=== PATIENT | female | born 1980 | race American Indian/Alaskan Native ===

== ENCOUNTER 2017-08-02 14:31 | Outpatient (CLI) | payer MEDICAID ==
[2017-08-02] MEDS ORDERED: LACTATED RINGERS 500 ML IV ONE (14:40)
[2017-08-02 15:22] LABS: Bacteria,Urine 1+ /HPF (Negative); Bilirubin,Urine NEG (Negative); Blood,Urine NEG (Negative); Ketones,Urine TR mg/dL (Negative); Leukocyte Esterase,Urine NEG (Negative); Mucus,Urine FEW /HPF; Nitrite,Urine NEG (Negative); Protein,Urine <15 mg/dL mg/dL (Negative); Urobilinogen,Urine < 2.0 mg/dL (<2.0)
--- NOTE | 2017-08-02 16:30 | Event Note ---
Date: 08/02/17 patient in triage with reports of having sharp pain around her lower abd followed by a wave of nausea and one episode of vomiting. She states after that , she noticed her underwear were wet. She states she had a panic attack but is feeling better now. no signs of ROM. Spec exam done - no pooling and nitrazine negative. white opaque discharge noted in a normal amount. Wet prep sent to lab. cervix appears long and closed. reassured patient, If normal EVELYN and Wet prep results, will d/c home to f/u in office. She is also requesting dental letter as she is having work done tomorrow (suspected cause of anxiety for patient.)
--- NOTE | 2017-08-02 18:21 | Ultrasound Report ---
FINAL REPORT EXAM: US OB LIMITED HISTORY: If FHR present, please do BPP, EVELYN TECHNIQUE: Biophysical profile obstetrical ultrasound PRIORS: None. FINDINGS: LMP 01/07/2017 clinical Age: 29 W 4d LMP EDC 10/14/2017 Biophysical profile scoring 2 Movement 2 tone 2 breathing 2 fluid 8/8 overall score Presentation: Reach Activity: Monitored Cardiac motion: 150 BPM using M-mode doppler Amniotic Fluid Volume: Adequate EVELYN 10.4 cm IMPRESSION: Single intrauterine viable . Biophysical profile score is. 8/8.
--- NOTE | 2017-08-02 18:23 | Ultrasound Report ---
FINAL REPORT EXAM: US OB BPP WO NON-STRESS HISTORY: unable to trace FHR . TECHNIQUE: Biophysical profile obstetrical ultrasound PRIORS: None.. The correlation to a limited OB ultrasound performed the same day was made. FINDINGS: LMP 01/07/2017 clinical Age: 30 W 4d LMP EDC 10/14/2017 Biophysical profile scoring 2 Movement 2 tone 2 breathing 2 fluid 8/8 overall score Presentation: Breech Activity: Monitored Cardiac motion: 147 BPM using M-mode doppler Amniotic Fluid Volume: Adequate EVELYN 10.4 cm IMPRESSION: Single intrauterine viable . Biophysical profile score is. 8/8.
== END 2017-08-02 18:27 | disposition home or self-care (01) ==
LOC: TRG 14:31
PROVIDERS: ATTEND Obstetrics & Gynecology
DX: O09.523 Supervision of elderly multigravida, third trimester (principal); O26.893 Other specified pregnancy related conditions, third trimester; R10.30 Lower abdominal pain, unspecified; O32.1XX0 Maternal care for breech presentation, not applicable or unspecified; Z3A.29 29 weeks gestation of pregnancy
CPT/HCPCS: 76815; 76819; 81001; 87210

== ENCOUNTER 2017-09-18 13:07 | Outpatient (CLI) | payer MEDICAID ==
[2017-09-18] MEDS ORDERED: LACTATED RINGERS 1,000 ML ONE (13:47)
[2017-09-18 13:54] VITALS: BP 126/68
[2017-09-18 14:51] LABS: Bacteria,Urine 2+ /HPF (Negative); Bilirubin,Urine NEG (Negative); Blood,Urine NEG (Negative); Color,Urine Yellow (Yellow); Mucus,Urine FEW /HPF; Nitrite,Urine NEG (Negative)
== END 2017-09-18 15:30 | disposition home or self-care (01) ==
LOC: TRG 13:07
PROVIDERS: ATTEND Obstetrics & Gynecology
DX: O09.523 Supervision of elderly multigravida, third trimester (principal); O47.03 False labor before 37 completed weeks of gestation, third trimester; Z3A.36 36 weeks gestation of pregnancy
CPT/HCPCS: 59025; 81001; 96360; J7120

== ENCOUNTER 2017-09-19 11:08 | Outpatient (CLI) | payer MEDICAID ==
[2017-09-19 11:23] VITALS: BP 124/58
[2017-09-19] MEDS ORDERED: LACTATED RINGERS 1,000 ML ONE (11:37)
[2017-09-19] MEDS ORDERED: LACTATED RINGERS 500 ML IV ONE (11:42)
[2017-09-19 12:10] LABS: Bacteria,Urine 1+ /HPF (Negative); Bilirubin,Urine NEG (Negative); Blood,Urine NEG (Negative); Color,Urine Yellow (Yellow); Mucus,Urine FEW /HPF; Nitrite,Urine NEG (Negative); Protein,Urine <15 mg/dL mg/dL (Negative)
[2017-09-19 12:21] LABS: Amphetamine Screen,Urine PRESUMPTIVE NEGATIVE; Benzodiazepines Screen,Urine PRESUMPTIVE NEGATIVE; Cocaine Screen,Urine PRESUMPTIVE NEGATIVE; Methadone Screen,Urine PRESUMPTIVE NEGATIVE; Opiate Screen,Urine PRESUMPTIVE NEGATIVE
[2017-09-19 12:35] LABS: Cannabinoid Screen,Urine PRESUMPTIVE POSITIVE
== END 2017-09-19 12:41 | disposition home or self-care (01) ==
LOC: TRG 11:08
PROVIDERS: ATTEND Obstetrics & Gynecology
DX: O09.523 Supervision of elderly multigravida, third trimester (principal); O47.03 False labor before 37 completed weeks of gestation, third trimester; Z3A.36 36 weeks gestation of pregnancy
CPT/HCPCS: 59025; 80307; 81001; 96360; 96361; J7120

== ENCOUNTER 2017-10-26 11:53 | Outpatient (CLI) | payer MEDICAID ==
--- NOTE | 2017-10-26 15:30 | Cat Scan Report ---
CT ABDOMEN AND PELVIS WITH CONTRAST INDICATION: Right lower quadrant pain. 3 weeks postop with 2 cm incisional opening. Evaluate for bowel herniation. COMPARISON: None similar. FINDINGS: Abdomen and pelvis CT performed following oral contrast and intravenous administration of 100 cc of Omnipaque 300. LUNG BASES: Mild cardiomegaly with slightly generous hypodensity/fluid along the right heart border. Minimal bilateral pleural fluid/thickening as on axial image 7, series 2 as well. Mild nonspecific air-filled distal esophageal wall prominence. ABDOMEN: Left hepatic lobe tip wraps around the spleen in the left upper quadrant. Right hepatic lobe approximately 19.5 cm in mid clavicular length. Motion artifact partly degrades exam. Otherwise grossly unremarkable liver, spleen, gallbladder, pancreas, adrenals aorta, IVC and kidneys. Nonopacified GI tract nonobstructive and within normal limits. Normal appendix. PELVIS: Mild rectosigmoid stool. Endometrial canal fluid and overall physiologic CT appearance of the uterus, adnexa/ovaries and the urinary bladder. No free fluid. Few small bilateral inguinal and iliac lymph nodes measure up to approximately 2 cm on the right, axial image 347, series 2. Lower anterior abdominal wall along the pannus and likely along the incision demonstrates a 2.6 cm AP x 11.5 cm transverse fluid collection measuring 23HU, axial image 319, series 2, possibly a liquefying hematoma with slightly prominent/thickened raza. It is estimated at 4-5 cm craniocaudal. Mild multilevel spinal degenerative spurring, greatest lower thoracic. CONCLUSION: 1. Lower anterior abdominal wall subcutaneous fluid collection along the pannus/incision, as described. 2. Various other findings, including mild cardiomegaly and hepatomegaly, as detailed above. Please correlate. I phoned the above results to Dr. Cartagena, 3:10 PM, 10/26/2017. Thank you for the opportunity to participate in this patient's care.
== END 2017-10-26 11:54 | disposition home or self-care (01) ==
LOC: CT 11:53
PROVIDERS: ATTEND Obstetrics & Gynecology
DX: R10.31 Right lower quadrant pain (principal); R16.0 Hepatomegaly, not elsewhere classified; I51.7 Cardiomegaly; M53.84 Other specified dorsopathies, thoracic region
CPT/HCPCS: 74177; Q9967

== ENCOUNTER 2018-01-27 12:43 | Emergency (ER) | payer SELFPAY ==
[2018-01-27 13:04] VITALS: BP 112/76
--- NOTE | 2018-01-27 14:59 | Emergency Department Report ---
ED Extremity Problem HPI - General Chief complaint: Extremity Problem,Nontraumatic Stated complaint: BUTTOCKS PAIN Time Seen by Provider: 01/27/18 14:42 Source: patient Mode of arrival: Ambulatory Limitations: No Limitations - History of Present Illness Initial comments: Patient is a 37-year-old [place] female presenting with left hip pain. Patient states that she recently had a baby and for the past week and a half she has had left-sided hip pain and buttock pain that radiates to the left leg. Patient denies any midline tenderness fever problem urinating problems defecating. Patient states pain is a 10 out of 10 and worse when she sitting directly on her left butt cheek. - Related Data Home Medications Medication Instructions Recorded Confirmed Last Taken Acetaminophen [Tylenol Extra 500 mg PO PRN 10/07/17 10/07/17 1 Day Ago Strength] ~10/06/17 Vit,Calc76/Iron/Folic 1 each PO DAILY 10/07/17 10/07/17 1 Day Ago [Pnv 29-1 Tablet] ~10/06/17 Previous Rx's Medication Instructions Recorded Last Taken Type Ibuprofen 800 mg PO Q6H #30 tablet 10/07/17 Unknown Rx oxyCODONE /ACETAMINOPHEN [Percocet 1 tab PO Q4HR #30 tab 10/07/17 Unknown Rx 5/325] HYDROcodone/APAP 5-325 [[place] 1 each PO Q6HR PRN #15 tablet 01/27/18 Unknown Rx 5/325] Prednisone [predniSONE 10 mg 10 mg PO .TAPER #1 tab.ds.pk 01/27/18 Unknown Rx (6-Day Pack, 21 Tabs)] methOCARBAMOL [Robaxin TAB] 500 mg PO Q6H PRN #15 tablet 01/27/18 Unknown Rx Allergies Allergy/AdvReac Type Severity Reaction Status Date / Time No Known Allergies Allergy Verified 01/27/18 12:57 ED Review of Systems ROS: Stated complaint: BUTTOCKS PAIN Other details as noted in HPI Comment: All other systems reviewed and negative ED Past Medical Hx - Past Medical History Hx Hypertension: No Hx Congestive Heart Failure: No Hx Diabetes: No Hx Deep Vein Thrombosis: No Hx Renal Disease: No Hx Sickle Cell Disease: No Hx Seizures: No Hx Asthma: No Hx COPD: No Hx HIV: No - Surgical History Hx Breast Surgery: Yes (BREAST REDUCTION) - Social History Smoking Status: Never Smoker Substance Use Type: None - Medications Home Medications: Home Medications Medication Instructions Recorded Confirmed Last Taken Type Acetaminophen [Tylenol Extra 500 mg PO PRN 10/07/17 10/07/17 1 Day Ago History Strength] ~10/06/17 Ibuprofen 800 mg PO Q6H #30 tablet 10/07/17 Unknown Rx Vit,Calc76/Iron/Folic 1 each PO DAILY 10/07/17 10/07/17 1 Day Ago History [Pnv 29-1 Tablet] ~10/06/17 oxyCODONE /ACETAMINOPHEN [Percocet 1 tab PO Q4HR #30 tab 10/07/17 Unknown Rx 5/325] HYDROcodone/APAP 5-325 [[place] 1 each PO Q6HR PRN #15 tablet 01/27/18 Unknown Rx 5/325] Prednisone [predniSONE 10 mg 10 mg PO .TAPER #1 tab.ds.pk 01/27/18 Unknown Rx (6-Day Pack, 21 Tabs)] methOCARBAMOL [Robaxin TAB] 500 mg PO Q6H PRN #15 tablet 01/27/18 Unknown Rx ED Physical Exam - General Limitations: No Limitations General appearance: alert, in no apparent distress - Head Head exam: Present: atraumatic, normocephalic - Eye Eye exam: Present: normal appearance - ENT ENT exam: Present: mucous membranes moist - Neck Neck exam: Present: normal inspection - Respiratory Respiratory exam: Present: normal lung sounds bilaterally. Absent: respiratory distress - Cardiovascular Cardiovascular Exam: Present: regular rate, normal rhythm. Absent: systolic murmur, diastolic murmur, rubs, gallop - GI/Abdominal GI/Abdominal exam: Present: soft, normal bowel sounds - Extremities Exam Extremities exam: Present: normal inspection, other (patient has pain with palpation to the left buttock. There is no swelling to the leg.) - Back Exam Back exam: Present: normal inspection - Neurological Exam Neurological exam: Present: alert, oriented X3 - Psychiatric Psychiatric exam: Present: normal affect, normal mood - Skin Skin exam: Present: warm, dry, intact, normal color. Absent: rash ED Course Vital Signs 01/27/18 12:57 Temperature 98.3 F Pulse Rate 97 H Respiratory 16 Rate Blood Pressure 112/76 O2 Sat by Pulse 98 Oximetry ED Medical Decision Making - Medical Decision Making Patient clinically has sciatica be given meds for symptomatic relief. Critical care attestation.: If time is entered above; I have spent that time in minutes in the direct care of this critically ill patient, excluding procedure time. ED Disposition Clinical Impression: Sciatica Qualifiers: Laterality: left Qualified Code(s): M54.32 - Sciatica, left side Disposition: TO HOME OR SELFCARE Is pt being admited?: No Does the pt Need Aspirin: No Condition: Stable Instructions: Lumbar Radiculopathy (ED) Prescriptions: HYDROcodone/APAP 5-325 [[place] 5/325] 1 each PO Q6HR PRN #15 tablet PRN Reason: Pain methOCARBAMOL [Robaxin TAB] 500 mg PO Q6H PRN #15 tablet PRN Reason: Pain Prednisone [predniSONE 10 mg (6-Day Pack, 21 Tabs)] 10 mg PO .TAPER #1 tab.ds.pk Referrals: LIN LITTLE MD [Staff Physician] - 7-10 days
== END 2018-01-27 15:10 | disposition home or self-care (01) ==
LOC: ED 12:43
DX: M54.32 Sciatica, left side (principal)
CPT/HCPCS: 99282

== ENCOUNTER 2019-11-22 09:16 | Outpatient (CLI) | payer BC ==
[2019-11-22 10:24] LABS: Hematocrit 36.5 % (30.3-42.9); Hemoglobin 12.2 gm/dl (10.1-14.3); Mean Corpuscular HGB Conc 33 % (30-34); Mean Corpuscular Volume 84 fl (79-97); Platelet Count 210 K/mm3 (140-440); Red Blood Count 4.34 M/mm3 (3.65-5.03)
[2019-11-22 11:47] LABS: Hepatitis C Virus Antibody Non-Reactive (NonReactive)
== END 2019-11-22 09:17 | disposition home or self-care (01) ==
LOC: LAB 09:16
PROVIDERS: ATTEND Obstetrics & Gynecology
DX: Z34.81 Encounter for supervision of other normal pregnancy, first trimester (principal); Z3A.12 12 weeks gestation of pregnancy
CPT/HCPCS: 36415; 82951; 82962; 85027; 85660; 86592; 86689; 86706; 86762; 86803; 86900; 86901; 87086

== ENCOUNTER 2019-12-12 09:08 | Outpatient (CLI) | payer BC | END 2019-12-12 09:09 | disposition home or self-care (01) | LOC: LAB 09:08 | PROVIDERS: ATTEND Obstetrics & Gynecology | DX: O09.529 Supervision of elderly multigravida, unspecified trimester (principal); Z3A.00 Weeks of gestation of pregnancy not specified | CPT/HCPCS: 36415; 82106; 82951 ==

== ENCOUNTER 2020-02-18 17:33 | Outpatient (CLI) | payer BC, MEDICAID ==
[2020-02-18 18:16] VITALS: BP 120/62
[2020-02-18] MEDS ORDERED: ACETAMINOPHEN 325 MG TAB PO ONE (21:14)
== END 2020-02-18 20:22 | disposition home or self-care (01) ==
LOC: TRG 17:33 → APU 17:34 → TRG 20:22
PROVIDERS: ATTEND Obstetrics & Gynecology
DX: O26.893 Other specified pregnancy related conditions, third trimester (principal); R06.02 Shortness of breath; Z3A.26 26 weeks gestation of pregnancy
CPT/HCPCS: 71045

== ENCOUNTER 2020-03-26 21:31 | Outpatient (CLI) | payer BC, MEDICAID ==
[2020-03-26 22:45] VITALS: BP 122/58
== END 2020-03-26 22:35 | disposition home or self-care (01) ==
LOC: TRG 21:31
PROVIDERS: ATTEND Obstetrics & Gynecology
DX: O13.3 Gestational [pregnancy-induced] hypertension without significant proteinuria, third trimester (principal); Z3A.33 33 weeks gestation of pregnancy
CPT/HCPCS: 59025

== ENCOUNTER 2020-05-12 05:58 | Inpatient (IN) | payer BC, MEDICAID ==
--- NOTE | 2020-05-10 12:06 | History and Physical Report ---
History of Present Illness Date of examination: 05/09/20 Chief complaint: Admission for repeat section with bilateral tubal ligation History of present illness: Menstrual History Regularity: regular Menses every: 28 days Duration: 5 LMP: 08/06/2019 LMP reliability: definite LMP character: normal test type: urine test Date: 10/11/2019 BC at conception: none EDC Calculations EDC Confirmation: 05/18/2020 Past History : 3 Term Births: 2 Premature Births: 0 Living Children: 2 Para: 2 Mult. Births: 0 Prev : 2 Aborta: 0 Elect. Ab: 0 Spont. Ab: 0 Ectopics: 0 # 1 Delivery date: 2011 Weeks Gestation: ft Delivery type: Anesthesia type: epidural Delivery location: [facility] Infant Sex: Female weight: 7-4 # 2 Delivery date: 10/07/2017 Weeks Gestation: 39.0 Delivery type: Anesthesia type: epidural Delivery location: [facility] Infant Sex: female weight: 7.75 Risk Factors: Smoked Tobacco Use: Never smoker Smokeless Tobacco Use: Never Passive smoke exposure: no Drug use: no HIV high-risk behavior: low risk Alcohol use: no Past Medical History: Overweight - Past Surgical History: C/S x2 Breast Reduction Past Medical History Surgery (Non-billing clinician): C/S x2 Breast Reduction Abnormal PAP: negative Social Hx: Patient is single Smoking History: Patient has never smoked. nursing school/ works Infection History Hx of STD: trich HIV Risk Eval: low risk Hepatitis B Risk Eval: low risk Personal hx. of genital herpes: no Partner hx. of genital herpes: no Rash, Viral, or Febrile illness since last LMP? no Varicella/Chicken Pox Status: Previous Disease Genetic History ADVANCED MATERNAL AGE Congenital Heart Defect: Mom: no Dad: no Alan Disease: Mom: no Dad: no Thalassemia Mom: no Dad: no Neural Tube Defect Mom: no Dad: no Down's Syndrome Mom: no Dad: no Derek-Sachs Mom: no Dad: no Sickle Cell Disease/Trait Mom: no Dad: no Hemophilia Mom: no Dad: no Muscular Dystrophy Mom: no Dad: no Cystic Fibrosis Mom: no Dad: no Julisa Chorea Mom: no Dad: no Mental Retardation Mom: no Dad: no Fragile X Mom: no Dad: no Other Genetic/Chromosomal Disorder Mom: no Dad: no Child w/other defect Mom: no Dad: no Enviromental Exposures Xray Exposure: no Medication, drug, or alcohol use since LMP: no Chemical/Other Exposure: no Exposure to Cat Liter: no Hx of Parvovirus (Fifth Disease): no Occupational Exposure to Children: none urrent Allergies: No known allergies Past History Past Medical History: other (SEE HPI) Past Surgical History: breast surgery, section, other (SEE HPI) [employer] ASSOCIATE History: other (SEE HPI) Family/Genetic History: other (SEE HPI) Social history: full code, other (SEE HPI) - Obstetrical History Expected Date of Delivery: 05/18/20 Actual Gestation: 38 Week(s) 6 Day(s) : 3 Para: 2 Hx # Term Pregnancies: 2 Number of Pregnancies: 0 Spontaneous Abortions: 0 Induced : 0 Number of Living Children: 2 Medications and Allergies Allergies Allergy/AdvReac Type Severity Reaction Status Date / Time No Known Allergies Allergy Verified 01/27/18 12:57 Home Medications Medication Instructions Recorded Confirmed Last Taken Type Acetaminophen [Tylenol Extra 500 mg PO PRN 10/07/17 10/07/17 1 Day Ago History Strength] ~10/06/17 Ibuprofen 800 mg PO Q6H #30 tablet 10/07/17 Unknown Rx Vit,Calc76/Iron/Folic 1 each PO DAILY 10/07/17 10/07/17 1 Day Ago History [Pnv 29-1 Tablet] ~10/06/17 oxyCODONE /ACETAMINOPHEN [Percocet 1 tab PO Q4HR #30 tab 10/07/17 Unknown Rx 5/325] HYDROcodone/APAP 5-325 [[place] 1 each PO Q6HR PRN #15 tablet 01/27/18 Unknown Rx 5/325] Prednisone [predniSONE 10 mg 10 mg PO .TAPER #1 tab.ds.pk 01/27/18 Unknown Rx (6-Day Pack, 21 Tabs)] methOCARBAMOL [Robaxin TAB] 500 mg PO Q6H PRN #15 tablet 01/27/18 Unknown Rx Active Meds: Insulin 60N/40R a AM 30R qpm 38N qhs - Physical Exam Breasts: Positive: deferred Cardiovascular: Regular rate Lungs: Positive: Normal air movement Abdomen: Positive: normal appearance, soft, other (obese) Uterus: Positive: enlarged Results All other labs normal. Assessment and Plan - Patient Problems (1) Gestational diabetes Status: Acute Qualifiers: Gestational diabetes mellitus control: insulin-controlled Trimester: third trimester Qualified Code(s): O24.414 - Gestational diabetes mellitus in , insulin controlled Plan to address problem: 1) Insulin .... 60n 40r qam 30r qpm 38n qhs (2) 39 weeks gestation of Status: Acute (3) Previous delivery affecting Status: Acute Plan to address problem: Discuss the risks of the surgery including infection, bleeding possibly heavy enough to require a blood transfusion, possible damage to bowel, bladder or ureter. Patient understands her risks of adjacent organ damage is increased due to her previous surgery(ies) Her questions were answered. Patient understands and desires to proceed (4) BMI 45.0-49.9, adult Status: Chronic (5) HBsAg (hepatitis B surface antigen) positive, currently Status: Chronic (6) Sterilization Status: Acute Plan to address problem: Patient desires sterilization. Patient declined temporary contraceptives. Discuss the permanency of sterilization. High risk of regret and 0.5 to 1% risk of failure. Discussed possible ovarian cancer prevention benefit of salpingectomy with its increased risks of blood loss vs partial salpingectomy. Questions answered Patient understands and desires to proceed with partial salpingectomy.
[~2020-05-12 05:58] MED LIST: LACTATED RINGERS 1,000 ML IV SCH; OXYTOCIN 20 UNIT/1000ML DRIP 20 UNITS/1,000 ML BAG IV SCH
[2020-05-12] MEDS ORDERED: METOCLOPRAMIDE 10 MG/2 ML INJ IV ONE (06:00)
[2020-05-12] MEDS ORDERED: BICITRA ORAL LIQD 30ML PO ONE (06:00)
[2020-05-12] MEDS ORDERED: FAMOTIDINE 20 MG/2 ML INJ IV ONE (06:00)
--- NOTE | 2020-05-12 06:38 | Anesthesia Consultation ---
Anesthesia Consult and Med Hx Date of service: 05/12/20 - Airway Anesthetic Teeth Evaluation: Good ROM Head & Neck: Adequate Mental/Hyoid Distance: Adequate Mallampati Class: Class II Intubation Access Assessment: Probably Good - Pulmonary Exam CTA: Yes - Cardiac Exam Cardiac Exam: RRR - Pre-Operative Health Status ASA Pre-Surgery Classification: ASA3 Proposed Anesthetic Plan: Spinal - Pulmonary Hx Asthma: No COPD: No Hx Pneumonia: No - Cardiovascular System Hx Hypertension: No - Central Nervous System Hx Seizures: No Hx Psychiatric Problems: No - Endocrine Hx Renal Disease: No Hx End Stage Renal Disease: No Hx Non-Insulin Dependent Diabetes: Yes Hx Hypothyroidism: No Hx Hyperthyroidism: No - Hematic Hx Anemia: No Hx Sickle Cell Disease: No - Other Systems Hx Alcohol Use: No Hx Obesity: Yes
--- NOTE | 2020-05-12 06:39 | Anesthesia Day of Surgery ---
Anesthesia Day of Surgery - Day of Surgery Patient Examined: Yes Patient H&P Reviewed: Yes Patient is NPO: Yes
[2020-05-12] MEDS ORDERED: BUPIVACAINE/PF (0.5%) 5 MG/1 ML 30 ML VIAL INFILTRATI ONE (06:48)
[2020-05-12] MEDS ORDERED: ONDANSETRON 4 MG/2 ML INJ ONE (06:48)
[2020-05-12] MEDS ORDERED: dexAMETHasone 20 MG/5 ML VIAL ONE (06:48)
[2020-05-12] MEDS ORDERED: KETOROLAC 30 MG/1 ML INJ ONE (06:48)
[2020-05-12 06:50] LABS: Basophils % (Auto) 0.5 % (0.0-1.8); Eosinophils # (Auto) 0.1 K/mm3 (0.0-0.4); Eosinophils % (Auto) 1.7 % (0.0-4.3); Hematocrit 32.9 % (30.3-42.9); Hemoglobin 11.2 gm/dl (10.1-14.3); Lymphocytes # (Auto) 1.9 K/mm3 (1.2-5.4); Mean Corpuscular HGB Conc 34 % (30-34); Mean Corpuscular Volume 78 fl (79-97); Monocytes # (Auto) 0.5 K/mm3 (0.0-0.8); Monocytes % (Auto) 9.3 % (0.0-7.3); Platelet Count 149 K/mm3 (140-440); Red Blood Count 4.23 M/mm3 (3.65-5.03); Red Cell Distribution Width 14.6 % (13.2-15.2)
[2020-05-12] MEDS ORDERED: ceFAZolin/STERILE WATER 2 GM/20 ML SYRINGE IV ONE (07:35)
--- NOTE | 2020-05-12 09:37 | Post Anesthesia Evaluation ---
- Post Anesthesia Evaluation Patient Participated: Yes Airway Patent: Yes Stable Respiratory Function: Yes Nausea/Vomiting: No Temp > 96.8F: Yes Pain Manageable: Yes Adequeate Hydration: Yes Anesthesia Complications: No Block Receding Appropriately: Yes
--- NOTE | 2020-05-12 09:38 | Progress Note ---
Regional Anesthesia Block - Regional Anesthesia Block Start Time: :20 Stop Time: :30 Performed By:: MAKENNA LAZARO Procedure: U/S guided bilateral tap block performed for post-operative pain requested by Dr. Hartman. H&P & labs reviewed. Procedure explained, questions answered, consent obtained. Patient in the supine position with ekg, blood pressure cuff and pulse ox on and working in PACU. Timeout performed immediately before start of procedure. Probe placed in the mid-axillary line and the external oblique, internal oblique, and transverse abdominus muscles identified. Skin was cleansed with 0.5% Chlorahexadine and allowed to dry. A 4" 20 G Humphreys echogenic needle was advanced in plane until the tip was in the fascial plane between the internal oblique and the transverse abdominus. After negative aspiration 35 ml/side of [30 ml 0.5% Bupivacaine], [50 mcg dexmedetomidine], [8 mg dexamethasone], and [40 ml sterile saline] was injected in 5 ml increments with negative aspiration in between. Patient tolerated procedure well.
--- NOTE | 2020-05-12 09:45 | Operative Report ---
Operative Report Operative Report: Date of procedure: May 12, 2020 Pre-operative diagnosis: Intrauterine at 39 weeks with previous sections, gestational diabetes and body mass index 45. Patient desires permanent sterilization Post-operative diagnosis: Same Procedure name(s): Repeat low transverse section with bilateral tubal ligation modified Denise type Surgeon: Roni Hartman MD Assistant To The Director: KAROLINA Anesthesia: Spinal EBL: 1000 cc Complications: None Findings: Patient with a normal uterus tubes and ovaries bilaterally. Female infant weight 12 pounds 0 ounces. Apgars 9 at 1 minute and 9 at 5 minutes Specimen(s): Portion of the right and left fallopian tubes Procedure: The patient was brought to the operating room. A spinal was placed without any complications. She was then placed in left lateral tilt. Prepped and draped in the usual sterile manner. After testing for adequate anesthesia level, a Pfannenstiel incision was made through her previous scar. This incision was taken down to the fascia. The fascia was then nicked in the midline. This incision was extended out laterally with Mortensen scissors. The fascia was then sharply and bluntly from the underlying rectus muscles. The rectus muscles were bluntly and sharply . The peritoneum was then entered with the coiled tubing operator's fingers. This incision was spread vertically with care not to damage the bladder below. The Bandar self-retaining tractor was then placed without any difficulty. The bladder flap was then formed sharply and bluntly with Metzenbaum scissors. A transverse incision was made in lower uterine segment. This incision was extended laterally with the operators fingers. The amniotic sac was then entered bluntly with the coiled tubing operator's fingers. The infant was delivered from the vertex position with assistance of a vacuum. The was bulb suction on the mother's abdomen. Cord was double clamped and cut. The was then passed to the nursery personnel who were in attendance. The above scores were given by the nursery personnel. The placenta was then bluntly removed. The uterus was then externalized and wiped clean the remaining products. The uterine incision was closed in layers. The first incision was closed in a locking manner using 0 Vicryl. This was followed by imbricating stitch also with 0 Vicryl. Attention was then switched to the patient's fallopian tubes. Each fallopian tube was identified by its fimbriated end. A portion of each tube was grabbed with the Maud clamp approximately 2-3 cm from the cornua. Each loop was double ligated with 0 chromic suture. The loop were cut with Metzenbaum scissors. Each stump was found to be hemostatic and cauterized with the Bovie. Attention was then switched back to the uterine closure. This closure was hemostatic. The bladder flap was copiously irrigated and found to be hemostatic. The pelvis was copiously irrigated and found to be hemostatic. The uterus was then placed back to the patient's abdomen. The tubal ligations were inspected and found to be hemostatic. The retractors were removed. The rectus muscles were inspected and found to be hemostatic. The fascia was then closed in a running manner using 0 Vicryl. This incision was hemostatic irrigation Bovie. The skin was reapproximated with 4-0 Vicryl subcuticularly. The patient tolerated procedure well. Her urine was clear. The infant was admitted to the well baby nursery. The patient was accompanied to recovery room in good condition. Instrument count correct x3.
[2020-05-12] MEDS ORDERED: LANOLIN/ZINC/DIMETHICONE (LANSINOH) 7 GM TP PRN (11:14)
[2020-05-12] MEDS ORDERED: SODIUM CHLORIDE 0.45% 1000 ML 1,000 ML IV SCH (11:14)
[2020-05-12] MEDS ORDERED: NALOXONE 0.4 MG/1 ML INJ IV PRN (11:14)
[2020-05-12] MEDS ORDERED: DEXTROSE 50% IN WATER (25GM) 50 ML SYRINGE IV PRN (11:14)
[2020-05-12] MEDS ORDERED: ceFAZolin/NS 1 GM/50 ML 1 GM/50 ML BAG IV SCH (11:30)
[2020-05-12] MEDS: LACTATED RINGERS 1,000 ML IV SCH ×2 (11:50→20:01)
[2020-05-12] MEDS ORDERED: OXYTOCIN 20 UNIT/1000ML DRIP 20 UNITS/1,000 ML BAG IV SCH (12:00)
[2020-05-12] MEDS ORDERED: ONDANSETRON 4 MG/2 ML INJ IV PRN (12:00)
[2020-05-12] MEDS ORDERED: WITCH HAZEL/ GLYCERIN PAD TP PRN (12:00)
[2020-05-12] MEDS: KETOROLAC 30 MG/1 ML INJ IV SCH ×2 (15:41→23:30)
[2020-05-12] MEDS: INSULIN REGULAR, HUMAN 100 UNIT/ML 3ML VIAL SUB-Q SCH ×2 (15:53→23:27)
[2020-05-12] MEDS ORDERED: MAGNESIUM HYDROXIDE (MOM) ORAL LIQD UDC PO PRN (22:00)
[2020-05-13 00:15] LABS: Hemoglobin 9.7 gm/dl (10.1-14.3)
[2020-05-13] MEDS ORDERED: ceFAZolin/NS 1 GM/50 ML 1 GM/50 ML BAG IV SCH (01:45)
[2020-05-13] MEDS: KETOROLAC 30 MG/1 ML INJ IV SCH (05:25)
[2020-05-13] MEDS: INSULIN REGULAR, HUMAN 100 UNIT/ML 3ML VIAL SUB-Q SCH ×4 (05:30→22:44)
--- NOTE | 2020-05-13 08:25 | Progress Note ---
Assessment and Plan patient doing well, states she is hungry and ready for breakfast. VSSAF, H&H 9.7/29.0. Lochia scant, fundus firm. pt using abdominal binder for support. - Patient Problems (1) delivery delivered Current Visit: No Status: Acute Plan to address problem: continue postop pathway Advance diet and activity as tolerated (2) Sterilization Current Visit: No Status: Acute Subjective - Subjective Date of service: 05/13/20 Principal diagnosis: postop day #1 s/p repeat c/s Patient reports: appetite normal, voiding normally, pain well controlled, flatus, ambulating normally, no dizzy ambulation, no nauseated : doing well Objective - Vital Signs Latest vital signs: Vital Signs Temp Pulse Resp BP BP Pulse Ox 05/13/20 05:00 98.2 F 77 20 114/61 98 05/13/20 00:31 97.9 F 79 18 113/52 98 05/12/20 21:35 98.0 F 81 18 124/75 95 05/12/20 17:46 98.7 F 89 18 126/72 96 05/12/20 11:15 97.7 F 74 20 137/74 99 05/12/20 10:15 97.5 F L 68 17 125/65 99 05/12/20 10:00 74 19 151/86 99 05/12/20 09:45 70 18 141/87 99 05/12/20 09:30 74 18 110/45 98 05/12/20 09:25 78 18 100/37 98 05/12/20 09:20 79 20 115/57 97 05/12/20 09:15 78 15 109/51 95 05/12/20 09:11 97.9 F 79 19 107/43 96 Intake and Output 05/12/20 05/13/20 05/13/20 23:59 07:59 15:59 Intake Total 2260 360 Output Total 950 900 Balance 1310 -540 Intake: IV 1000 Lactated Ringers 1,000 ml 1000 @ 125 mls/hr IV DIRECT [facility] Rx#:[id number] Oral 420 Intake, Free Water 840 360 Output: Urine 950 900 Indwelling Catheter 950 Void 900 Other: Total, Intake Amount 120 Total, Output Amount 600 500 - Exam Breasts: Present: normal Cardiovascular: Present: Regular rate Lungs: Present: Clear to auscultation, Normal air movement Abdomen: Present: normal appearance, soft Vulva: both: normal Uterus: Present: normal, firm, fundal height below umbilicus Extremities: Present: normal Incision: Present: normal, dry, intact - Labs Labs: Abnormal lab results 05/12/20 05/12/20 05/12/20 Range/Units 16:02 23:37 23:39 Hgb 9.7 L (10.1-14.3) gm/dl Hct 29.0 L (30.3-42.9) % POC Glucose 238 H 126 H (70-105) 05/13/20 Range/Units 05:39 Hgb (10.1-14.3) gm/dl Hct (30.3-42.9) % POC Glucose 109 H (70-105)
[2020-05-13] MEDS: FERROUS SULFATE 325 MG TAB PO SCH (09:36)
[2020-05-13] MEDS: HYDROcodone/ACETAMINOPHEN 5-325 MG TAB PO PRN ×3 (09:36→22:31)
[2020-05-13] MEDS: PRENATAL VIT27-FE FUMARATE-FOLIC ACID VIT TAB PO SCH (09:37)
[2020-05-13] MEDS: IBUPROFEN 800 MG TAB PO PRN (18:45)
[2020-05-14] MEDS: IBUPROFEN 800 MG TAB PO PRN ×4 (02:26→23:35)
[2020-05-14] MEDS: HYDROcodone/ACETAMINOPHEN 5-325 MG TAB PO PRN ×4 (04:34→22:19)
[2020-05-14] MEDS: INSULIN REGULAR, HUMAN 100 UNIT/ML 3ML VIAL SUB-Q SCH ×3 (06:00→18:43)
[2020-05-14] MEDS: FERROUS SULFATE 325 MG TAB PO SCH (09:09)
[2020-05-14] MEDS: PRENATAL VIT27-FE FUMARATE-FOLIC ACID VIT TAB PO SCH (09:10)
--- NOTE | 2020-05-14 17:48 | Discharge Summary ---
Providers - Providers Date of Admission: 05/12/20 05:58 Date of discharge: 05/14/20 (Pt with better pain control.) Attending physician: JIM PAREDES 05/12/20 11:14 Consult to [employer] [CONS] Routine Reason For Exam: Primary care physician: JIM PAREDES Hospitalization Reason for admission: section Delivery: Procedure: bilateral tubal ligation, repeat low transverse Episiotomy: none Laceration: none Incision: normal, dry, intact (Skin glue intact. No s/sx of infection. No drainage noted. ) Other procedures: none complications: none Discharge diagnosis: IUP at term delivered [place] baby: female Pertinent studies: Pt states that she is doing well and her pain is better controlled after receiving 2 [place]. She would like to go home tonight or in the AM. Explained that discharge is written if she decides to go home tonight. Pt verbalized u nderstanding. Hospital course: S: 39 y.o. s/p repeat @ 39 wks. Doing a lot better this afternoon after receiving 2 [place] for pain. Ambulating, voiding, and passing flatus okay. BC: BTL with . O: VSS. Unable to determine fundus d/t body habitus. Minimal bleeding noted. Incision open to air, intact, no drainage noted. No s/sx of infection. H/H 9.7/29.0. A: 39 y.o. s/p repeat , gestational diabetes, POD#2. Doing well and stable for discharge home. Stable blood glucose levels. P: Discharge home with instructions. To schedule an incision check in 1 week. To schedule a visit in 4 weeks. Condition at discharge: Good Disposition: [id number] TO HOME OR SELFCARE Plan - Discharge Medications Prescriptions: Ferrous Sulfate [Feosol 325 MG tab] 325 mg PO BID #60 tablet Ibuprofen [Motrin 800 MG tab] 800 mg PO Q6H PRN #30 tablet PRN Reason: Pain oxyCODONE /ACETAMINOPHEN [Percocet 5/325 mg] 1 - 2 tab PO Q6HR PRN #20 tablet PRN Reason: Pain - Provider Discharge Summary Activity: routine, no sex for 6 weeks, no heavy lifting 4 weeks, no strenuous exercise Diet: routine Instructions: routine Additional instructions: [] Smoking cessation referral if applicable(refer to patient education folder for contact #) [] Refer to [facility] Booklet Call your doctor immediately for: * Fever > 100.5 * Heavy vaginal bleeding ( >1 pad per hour) * Severe persistent headache * Shortness of breath * Reddened, hot, painful area to leg or breast * Drainage or odor from incision. * Keep incision clean and dry at all times and follow doctor's instructions regarding bathing/showering - Follow up plan Follow up: JIM PAREDES MD [Primary Care Provider] - 7 Days (Congratulations!! Please schedule an incision check in the office in 1 week. Please schedule a visit in 4 weeks. If you have any questions or concerns after discharge, please do not hesitate to call the office at [phone].)
[2020-05-15] MEDS: HYDROcodone/ACETAMINOPHEN 5-325 MG TAB PO PRN ×3 (04:29→17:00)
--- NOTE | 2020-05-15 08:49 | Event Note ---
Date: 05/15/20 Discharge order placed on yesterday. Pt reports pain is well managed with current pain medication regimen. Pt plans to go home today. Fundus firm. Small bleeding. Pt aware to f/u in office in 4 wks for PPV.
[2020-05-15] MEDS: PRENATAL VIT27-FE FUMARATE-FOLIC ACID VIT TAB PO SCH ×2 (10:35→10:39)
[2020-05-15] MEDS: FERROUS SULFATE 325 MG TAB PO SCH ×2 (10:35→10:39)
[2020-05-15] MEDS: IBUPROFEN 800 MG TAB PO PRN (12:40)
[2020-05-15 15:15] VITALS: BP 127/66
== END 2020-05-15 18:30 | disposition home or self-care (01) | DRG 784 ==
LOC: APU 05:58 → OB 11:12
PROVIDERS: ADMIT Obstetrics & Gynecology; ATTEND Obstetrics & Gynecology
PROC: 10D00Z1 Extraction of Products of Conception, Low, Open Approach (ICD-10-PCS; principal; 2020-05-12)
PROC: 0UB70ZZ Excision of Bilateral Fallopian Tubes, Open Approach (ICD-10-PCS; 2020-05-12)
DX: O24.429 Gestational diabetes mellitus in childbirth, unspecified control (principal); O98.42 Viral hepatitis complicating childbirth; B19.10 Unspecified viral hepatitis B without hepatic coma; O34.211 Maternal care for low transverse scar from previous cesarean delivery; O99.214 Obesity complicating childbirth; E66.9 Obesity, unspecified; Z37.0 Single live birth; Z3A.39 39 weeks gestation of pregnancy; Z79.899 Other long term (current) drug therapy; Z30.2 Encounter for sterilization
CPT/HCPCS: 36415; 59025; 82962; 85014; 85018; 85025; 86592; 86762; 86850; 86900; 86901; 87806; 96360; 96374; G0378; J0690; J1100; J1815; J1885; J2405; J2590; J2765; J7030; J7120